=== PATIENT | male | born 1985 | race Caucasian/White ===

== ENCOUNTER 2019-07-13 10:48 | Emergency (ER) | payer SELFPAY ==
[2019-07-13] MEDS ORDERED: Ketorolac 60 MG/2 ML SDV IM ONE (11:20)
--- NOTE | 2019-07-13 11:21 | EDM.PDOC ---
ED HPI GENERAL MEDICAL PROBLEM - General Chief Complaint: Lower Extremity Injury/Pain Stated Complaint: INJURED RT KNEE Time Seen by Provider: 07/13/19 11:21 Source of Information: Reports: Patient History Limitations: Reports: No Limitations - History of Present Illness INITIAL COMMENTS - FREE TEXT/NARRATIVE: HISTORY AND PHYSICAL: History of present illness: Patient is a 34-year-old male presents to the ED with complaint of right knee injury. Patient states that he slipped yesterday on the wet grass and his right knee twisted underneath him. He states he has barely been able to bear weight on it. Review of systems: As per history of present illness and below otherwise all systems reviewed and negative. Past medical history: As per history of present illness and as reviewed below otherwise noncontributory. Surgical history: As per history of present illness and as reviewed below otherwise noncontributory. Social history: No reported history of drug or alcohol abuse. Family history: As per history of present illness and as reviewed below otherwise noncontributory. Physical exam: General: Patient sitting comfortably in no acute distress and nontoxic appearing HEENT: Atraumatic, normocephalic, pupils reactive, negative for conjunctival pallor or scleral icterus, mucous membranes moist, throat clear, neck supple, nontender, trachea midline. No meningeal signs. Extremities: Right knee is slightly swollen, tenderness to palpation along the medial and lateral aspect of the knee. Pain with flexion and extension. CMS intact distally. No proximal tenderness to palpation. negative for cords or calf pain. Neurovascular unremarkable. Neuro: Awake, alert, oriented. Cranial nerves II through XII unremarkable. Cerebellum unremarkable. Motor and sensory unremarkable throughout. Exam nonfocal. Notes: Patient given right knee immobilizer and crutches for right knee sprain until follow up with orthopedics. Diagnostics: x-ray right knee Therapeutics: 60mg Toradol IM Prescriptions: Tramadol Impression: Right knee injury Plan: 1. Ice, elevate, and motrin or tylenol as needed. You may take tramadol as needed for sever pain, do not take while driving as it may make you drowsy 2. Follow up with orthopedics, please call the number provided to schedule an appointment 3. Return to ED as needed as discussed Definitive disposition and diagnosis as appropriate pending reevaluation and review of above. right knee Pain Score (Numeric/FACES): 9 - Related Data Allergies Allergy/AdvReac Type Severity Reaction Status Date / Time iodine Allergy Other Verified 07/13/19 11:03 Penicillins Allergy Other Verified 07/13/19 11:03 Home Meds: Home Meds traMADol [Ultram] 50 mg PO Q6H PRN #12 tab 07/13/19 [Rx] Past Medical History - Past Health History Medical/Surgical History: Denies Medical/Surgical History - Infectious Disease History Infectious Disease History: Reports: Chicken Pox Social & Family History - Family History Family Medical History: Noncontributory - Tobacco Use Smoking Status *Q: Current Every Day Smoker Years of Tobacco use: 10 Packs/Tins Daily: 1 - Caffeine Use Caffeine Use: Reports: Coffee - Recreational Drug Use Recreational Drug Use: No Review of Systems - Review of Systems Review Of Systems: Comprehensive ROS is negative, except as noted in HPI. ED EXAM, GENERAL - Physical Exam Exam: See Below (see dictation) Course - Vital Signs Last Recorded V/S: Last Vital Signs Temp 98.2 F 07/13/19 10:57 Pulse 96 07/13/19 10:57 Resp 17 07/13/19 10:57 BP 143/95 H 07/13/19 10:57 Pulse Ox 98 07/13/19 10:57 - Orders/Labs/Meds Orders: Active Orders 24 hr Category Date Time Status DME for Discharge [COMM] Stat Oth 07/13/19 12:00 Ordered Meds: Medications Discontinued Medications Generic Name Dose Route Start Last Admin Trade Name Freq PRN Reason Stop Dose Admin Ketorolac Tromethamine 60 mg 07/13/19 11:20 07/13/19 11:33 Toradol IM 07/13/19 11:21 60 mg ONETIME ONE Administration Departure - Departure Time of Disposition: 12:05 Disposition: Home, Self-Care 01 Condition: Good Clinical Impression: Right knee injury - Discharge Information Prescriptions: traMADol [Ultram] 50 mg PO Q6H PRN #12 tab PRN Reason: Pain (Severe 7-10) Referrals: PCP,None [Primary Care Provider] - Forms: ED Department Discharge Additional Instructions: The following information is given to patients seen in the emergency department who are being discharged to home. This information is to outline your options for follow-up care. We provide all patients seen in our emergency department with a follow-up referral. The need for follow-up, as well as the timing and circumstances, are variable depending upon the specifics of your emergency department visit. If you don't have a primary care physician on staff, we will provide you with a referral. We always advise you to contact your personal physician following an emergency department visit to inform them of the circumstance of the visit and for follow-up with them and/or the need for any referrals to a consulting specialist. The emergency department will also refer you to a specialist when appropriate. This referral assures that you have the opportunity for follow-up care with a specialist. All of these measure are taken in an effort to provide you with optimal care, which includes your follow-up. Under all circumstances we always encourage you to contact your private physician who remains a resource for coordinating your care. When calling for follow-up care, please make the office aware that this follow-up is from your recent emergency room visit. If for any reason you are refused follow-up, please contact the Emergency Department at and asked to speak to the emergency department charge nurse. Special[facility] [address], [address] [place] [address] 1. Ice, elevate, and motrin or tylenol as needed. You may take tramadol as needed for sever pain, do not take while driving as it may make you drowsy 2. Follow up with orthopedics, please call the number provided to schedule an appointment 3. Return to ED as needed as discussed Sepsis Event Note - Evaluation Sepsis Screening Result: No Definite Risk - Focused Exam Vital Signs: Vital Signs Temp Pulse Resp BP Pulse Ox 07/13/19 10:57 98.2 F 96 17 143/95 H 98 Date Exam was Performed: 07/13/19 Time Exam was Performed: 12:03 - My Orders Last 24 Hours: My Active Orders 07/13/19 12:00 DME for Discharge [COMM] Stat - Assessment/Plan Last 24 Hours: My Active Orders 07/13/19 12:00 DME for Discharge [COMM] Stat
--- NOTE | 2019-07-13 11:50 | CR ---
Left knee: AP, lateral and sunrise patellar views of the left knee were obtained. Comparison: No previous knee exam is available. Mild medial joint space narrowing is seen. Small joint effusion is seen. No acute fracture or other bony abnormality is appreciated. Patellofemoral joint is preserved. Impression: 1. Mild medial joint space narrowing and small joint effusion. 2. No acute bony abnormality is appreciated. Diagnostic code #2 This report was dictated in MDT
== END 2019-07-13 12:20 | disposition home or self-care (01) ==
LOC: MW.ED 10:48
DX: S89.91XA Unspecified injury of right lower leg, initial encounter (principal); F17.210 Nicotine dependence, cigarettes, uncomplicated; Z88.0 Allergy status to penicillin; Z91.048 Other nonmedicinal substance allergy status; X50.1XXA Overexertion from prolonged static or awkward postures, initial encounter
CPT/HCPCS: 73562; 96372; 99283; J1885